=== PATIENT | female | born 1990 | race Caucasian/White ===

== ENCOUNTER 2016-07-20 10:14 | Emergency (ER) | payer MEDICAID ==
[~2016-07-20] VITALS: Ht 167.6 cm; Wt 69.9 kg
[2016-07-20 10:20] VITALS: BP_SYST 123
[2016-07-20 10:55] VITALS: BP_SYST 120
== END 2016-07-20 10:55 | disposition home or self-care (01) ==
LOC: SED 10:14
DX: K02.9 Dental caries, unspecified (principal)
CPT/HCPCS: 99283

== ENCOUNTER 2016-11-25 23:43 | Emergency (ER) | payer MEDICAID ==
[~2016-11-25] VITALS: Ht 167.6 cm; Wt 72.6 kg
[2016-11-25 23:45] VITALS: BP_SYST 122
[2016-11-26] MEDS ORDERED: KETOROLAC TROMETHAMINE 60 MG/2 ML VIAL IM ONE
== END 2016-11-26 00:18 | disposition home or self-care (01) ==
LOC: SED 23:43
DX: S02.5XXA Fracture of tooth (traumatic), initial encounter for closed fracture (principal); K02.9 Dental caries, unspecified; X58.XXXA Exposure to other specified factors, initial encounter; Y93.89 Activity, other specified; Y92.89 Other specified places as the place of occurrence of the external cause; Y99.8 Other external cause status
CPT/HCPCS: 96372; 99283; J1885

== ENCOUNTER 2017-06-11 12:31 | Emergency (ER) | payer MEDICAID ==
[~2017-06-11] VITALS: Ht 167.6 cm; Wt 75.7 kg
[2017-06-11 12:31] VITALS: BP_SYST 137
[2017-06-11] MEDS ORDERED: METOCLOPRAMIDE HCL 10 MG TABLET PO ONE (14:00)
[2017-06-11] MEDS ORDERED: KETOROLAC TROMETHAMINE 30 MG VIAL IM ONE (14:00)
[2017-06-11] MEDS ORDERED: DIPHENHYDRAMINE HCL 25 MG CAPSULE PO ONE (14:00)
[2017-06-11 14:54] VITALS: BP_SYST 126
== END 2017-06-11 14:54 | disposition home or self-care (01) ==
LOC: SED 12:31
DX: G43.909 Migraine, unspecified, not intractable, without status migrainosus (principal); R03.0 Elevated blood-pressure reading, without diagnosis of hypertension
CPT/HCPCS: 96372; 99283; J1885; J8597; Q0163

== ENCOUNTER 2017-09-15 14:42 | Emergency (ER) | payer MEDICAID ==
[~2017-09-15] VITALS: Ht 167.6 cm; Wt 75.3 kg
[2017-09-15 14:42] VITALS: BP_SYST 108
[2017-09-15 15:15] LABS: BILIRUBIN,URINE NEGATIVE (NEGATIVE); BLOOD, URINE NEGATIVE (NEGATIVE); CLARITY/URINE CLEAR (CLEAR); COLOR,URINE YELLOW (YELLOW); GLUCOSE,URINE NEGATIVE (NEGATIVE); KETONES,URINE NEGATIVE (NEGATIVE); LEUKOCYTE ESTERASE ,URINE NEGATIVE (NEGATIVE); NITRITE, URINE POSITIVE (NEGATIVE); PROTEIN URINE NEGATIVE (NEGATIVE); UROBILINOGEN,URINE 0.2 (0.2-1.0)
[2017-09-15] MEDS ORDERED: PHENAZOPYRIDINE HCL 100 MG TABLET PO ONE (15:15)
[2017-09-15] MEDS ORDERED: KETOROLAC TROMETHAMINE 60 MG/2 ML VIAL IM ONE (15:15)
[2017-09-15 15:24] LABS: BACTERIA,URINE MANY /HPF (None Seen); RBC,URINE 0-3 /HPF (0-3)
[2017-09-15 16:05] VITALS: BP_SYST 117
== END 2017-09-15 16:05 | disposition home or self-care (01) ==
LOC: SED 14:42
DX: N39.0 Urinary tract infection, site not specified (principal); Z98.51 Tubal ligation status
CPT/HCPCS: 81000; 81025; 87086; 96372; 99284; J1885

== ENCOUNTER 2017-10-13 21:23 | Emergency (ER) | payer MEDICAID ==
[~2017-10-13] VITALS: Ht 167.6 cm; Wt 77.1 kg
[2017-10-13 21:35] VITALS: BP_SYST 139
[2017-10-13] MEDS ORDERED: HYDROcodone/ACETAMIN 5-325 MG TAB (NORCO/ VICODIN) PO ONE (22:30)
[2017-10-13 22:42] VITALS: BP_SYST 127
== END 2017-10-13 22:42 | disposition home or self-care (01) ==
LOC: SED 21:23
DX: K08.89 Other specified disorders of teeth and supporting structures (principal); R03.0 Elevated blood-pressure reading, without diagnosis of hypertension
CPT/HCPCS: 99283

== ENCOUNTER 2018-07-28 09:07 | Emergency (ER) | payer MEDICAID ==
[~2018-07-28] VITALS: Ht 167.6 cm; Wt 77.1 kg
[2018-07-28 09:07] VITALS: BP_SYST 135
[2018-07-28] MEDS ORDERED: IBUPROFEN 600 MG TABLET PO ONE (10:00)
[2018-07-28] MEDS ORDERED: AMOXICILLIN 500 MG CAPSULE PO ONE (10:00)
[2018-07-28] MEDS ORDERED: NEOMYCIN/POLYMYX B/HYDROCORTISONE 10 ML OTIC SOLUTION OT ONE (10:00)
[2018-07-28 10:27] VITALS: BP_SYST 125
== END 2018-07-28 10:27 | disposition home or self-care (01) ==
LOC: SED 09:07
DX: H66.91 Otitis media, unspecified, right ear (principal); H60.91 Unspecified otitis externa, right ear
CPT/HCPCS: 81025; 99284